=== PATIENT | female | born 1945 | race Caucasian/White ===

== ENCOUNTER 2024-04-01 06:39 | Inpatient (IN) | payer MEDICARE, BC ==
[2024-04-01] VITALS (19 sets, daily range): BP systolic 145–161; BP diastolic 69–85; PULSE 75–104; RESP 12–25; TEMP 97.8–98.9; O2SAT 93–100
[~2024-04-01] VITALS: Ht 160 cm; Wt 72.7 kg
[2024-04-01] MEDS: normal saline 1000ML IV soln IVB ONE (06:57)
[2024-04-01] MEDS: normal saline 1000ml 1,000 ML IV ONE (06:58)
[2024-04-01 07:18] LABS: BASOPHILS % (AUTO) 0.4 % (0-1); EOSINOPHILS % (AUTO) 0.2 % (0-6); HEMATOCRIT 36.3 % (35.0-45.0); LYMPHOCYTES # (AUTO) 1.3 X10'3 (1.1-4.8); LYMPHOCYTES % (AUTO) 14.1 % (21-51); MEAN CORPUSCULAR HEMOGLOBIN 32.8 PG (27.0-31.0); MEAN CORPUSCULAR HGB CONC 33.1 g/dL (33.0-36.5); MEAN PLATELET VOLUME 7.6 FL (7.4-10.4); MONOCYTES % (AUTO) 10.7 % (2-12); NEUTROPHILS # (AUTO) 7.1 X10'3 (1.8-7.7); NEUTROPHILS % (AUTO) 74.6 % (42-75); PLATELET COUNT 152 X10'3 (140-440); RED BLOOD COUNT 3.66 X10'6 (4.20-5.60); RED CELL DISTRIBUTION WIDTH 15.9 % (11.5-14.5); WHITE BLOOD COUNT 9.5 X10'3 (4.5-11.0)
[2024-04-01] MEDS: IOHEXOL 12MG/ML oral solution 500 ML BOTTLE PO ONE (07:21)
[2024-04-01 07:31] LABS: LIPASE 24 U/L (16-77); MAGNESIUM 2.3 MG/DL (1.5-2.4)
[2024-04-01 07:40] LABS: APTT 28 SECONDS (22-32); INR 1.1 INR; PROTHROMBIN TIME 11.4 SECONDS (9.0-12.0)
[2024-04-01 07:48] LABS: ETHANOL < 10 MG/DL (<10)
[2024-04-01] MEDS: morphine 2 MG/ML inj. syringe IV PRN (08:13)
[2024-04-01 09:46] LABS: ALANINE AMINOTRANSFERASE 31 U/L (12-78); ALBUMIN 3.2 G/DL (3.4-5.0); ALBUMIN/GLOBULIN RATIO 0.7 (1.1-1.5); ALKALINE PHOSPHATASE 54 IU/L (46-116); ANION GAP 11 (8-16); ASPARTATE AMINO TRANSFERASE 39 U/L (10-37); BILIRUBIN,TOTAL 0.7 MG/DL (0.1-1.0); BLOOD UREA NITROGEN 17 MG/DL (7-18); BUN/CREATININE RATIO 16.7 (10.0-20.0); CALCIUM 8.6 MG/DL (8.5-10.1); CHLORIDE 105 MMOL/L (99-107); CREATININE 1.02 MG/DL (0.40-0.90); GLUCOSE 127 MG/DL (70-104); POTASSIUM 3.7 MMOL/L (3.5-5.1); SODIUM 139 MMOL/L (135-145); TOTAL CARBON DIOXIDE 23.3 MMOL/L (24-32); TOTAL PROTEIN 7.6 G/DL (6.4-8.2); eCRCL 38 ML/MIN; eGFR 52 ML/MIN
[2024-04-01] MEDS ORDERED: iohexol 300mg/ml 100ml inj. ONE (09:55)
[2024-04-01] MEDS: metroNIDAZOLE-Flagyl 500mg/NS 100 ML IV STA (11:20)
[2024-04-01] MEDS ORDERED: acetaminophen 325mg tablet PO PRN (11:40)
[2024-04-01] MEDS ORDERED: magnesium Cl slow-release 64mg tablet PO PRN (11:40)
[2024-04-01] MEDS ORDERED: potassium Cl 40MEQ/1/2NS 520ml 520 ML IV PRN (11:40)
[2024-04-01] MEDS ORDERED: ondansetron/PF 4mg/2ml inj IV PRN ×2 (11:40→15:00)
[2024-04-01] MEDS ORDERED: magnesium sulf-water 2g/50mL 50 ML IV PRN (11:40)
[2024-04-01] MEDS ORDERED: potassium Cl 20 mEq SR tablet PO PRN ×2 (11:40)
[2024-04-01] MEDS ORDERED: morphine 2 MG/ML inj. syringe IV PRN ×2 (11:40→15:00)
[2024-04-01] MEDS ORDERED: magnesium sulf-water 4G/100mL 100 ML IV PRN (11:40)
[2024-04-01] MEDS: normal saline 1000ml 1,000 ML IV SCH (11:52)
[2024-04-01] MEDS: piperacillin/tazo 4.5gm/100ml 100 ML IV ONE (12:30)
[2024-04-01] MEDS ORDERED: BUPIVAcaine/PF 2.5mg/ml (0.25%) 10ml vial ONE (13:48)
[2024-04-01] MEDS: morphine 2 MG/ML inj. syringe IV ONE (14:38)
[2024-04-01] MEDS ORDERED: proCHLORperazine 10 MG/2 ml inj IV PRN (15:00)
[2024-04-01] MEDS ORDERED: meperidine/PF 25mg/ml syringe IV PRN ×2 (15:00)
[2024-04-01] MEDS ORDERED: PANT-47 PO (15:40)
[2024-04-01] MEDS ORDERED: PHEN37.58 PO (15:41)
[2024-04-01] MEDS ORDERED: ALEN70TA60 PO (15:43)
[2024-04-01] MEDS ORDERED: sevoflurane 250ml liquid IH ONE (16:56)
[2024-04-01] MEDS ORDERED: propofol inj 20 ML IV ONE (16:58)
[2024-04-01] MEDS ORDERED: fentaNYL/PF 50MCG/1 ML 2ML syringe ONE (16:58)
[2024-04-01] MEDS ORDERED: midazolam 1 mg/ML 2ml injection ONE (16:58)
[2024-04-01] MEDS ORDERED: rocuronium 10mg/ml inj IV ONE (16:59)
[2024-04-01] MEDS ORDERED: dexamethasone sod phosphate 4mg/ml inj. ONE (17:27)
[2024-04-01] MEDS ORDERED: neostigmine methylsulfate 1 MG/ML 10ml vial ONE (18:46)
[2024-04-01] MEDS ORDERED: glycopyrrolate 0.2mg/ml inj ONE (18:46)
[2024-04-01] MEDS: meperidine/PF 25mg/ml syringe IV PRN (19:01)
[2024-04-01] MEDS ORDERED: naloxone 0.4 mg/ml inj IV PRN (19:15)
[2024-04-01] MEDS: morphine 4 MG/ML inj SYRINge IV PRN (19:37)
[2024-04-01] MEDS: K and/or MAG REPLACEMENT MC SCH (20:00)
[2024-04-01] MEDS: docusate sod 100mg capsule PO SCH (20:38)
[2024-04-01] MEDS: ringers solution, lacted 1,000 ML IV SCH (20:39)
[2024-04-01] MEDS: heparin, porcine 5000 units/ml vial SQ SCH (20:39)
[2024-04-01] MEDS: HYDROmorphone inj. 0.5 MG/0.5 ML DISP.SYRIN IV PRN (23:13)
[2024-04-02] MEDS: piperacillin/tazo 4.5gm/100ml 100 ML IV SCH (00:13)
[2024-04-02 02:00] VITALS: BP 154/83; PULSE 103; RESP 14; TEMP 98.2; O2SAT 96
[2024-04-02 06:33] LABS: BASOPHILS % (AUTO) 0.1 % (0-1); EOSINOPHILS % (AUTO) 0 % (0-6); HEMATOCRIT 33.7 % (35.0-45.0); HEMOGLOBIN 11.3 g/dl (12.0-16.0); LYMPHOCYTES # (AUTO) 0.9 X10'3 (1.1-4.8); LYMPHOCYTES % (AUTO) 12.1 % (21-51); MEAN CORPUSCULAR HGB CONC 33.4 g/dL (33.0-36.5); MEAN CORPUSCULAR VOLUME 98.8 FL (78-98); MONOCYTES # (AUTO) 0.6 X10'3 (0-0.9); MONOCYTES % (AUTO) 7.8 % (2-12); NEUTROPHILS # (AUTO) 6.3 X10'3 (1.8-7.7); PLATELET COUNT 152 X10'3 (140-440); RED BLOOD COUNT 3.41 X10'6 (4.20-5.60); RED CELL DISTRIBUTION WIDTH 15.6 % (11.5-14.5); WHITE BLOOD COUNT 7.8 X10'3 (4.5-11.0)
[2024-04-02 06:47] LABS: ALBUMIN 2.4 G/DL (3.4-5.0); ANION GAP 12 (8-16); BLOOD UREA NITROGEN 14 MG/DL (7-18); BUN/CREATININE RATIO 15.6 (10.0-20.0); CALCIUM 7.7 MG/DL (8.5-10.1); CHLORIDE 105 MMOL/L (99-107); GLUCOSE 126 MG/DL (70-104); MAGNESIUM 1.9 MG/DL (1.5-2.4); POTASSIUM 4.1 MMOL/L (3.5-5.1); SODIUM 138 MMOL/L (135-145); TOTAL CARBON DIOXIDE 20.6 MMOL/L (24-32); eCRCL 43 ML/MIN; eGFR 61 ML/MIN
[2024-04-02 07:10] VITALS: BP 144/72; PULSE 104; RESP 13; TEMP 98; O2SAT 94
[2024-04-02] MEDS: pantoprazole 40mg Tablet.DR PO SCH (07:30)
[2024-04-02 08:00] VITALS: RESP 13; O2SAT 94
[2024-04-02] MEDS: morphine 2 MG/ML inj. syringe IV PRN (10:02)
[2024-04-02 10:05] VITALS: BP 145/73; PULSE 102; RESP 16; TEMP 99.8; O2SAT 95
[2024-04-02] MEDS ORDERED: HYDROcodone/acetaminophen 5mg/325mg tablet PO PRN (14:25)
[2024-04-02 18:00] VITALS: BP 153/90; PULSE 109; RESP 17; TEMP 98.4; O2SAT 93
[2024-04-02 22:00] VITALS: BP 150/78; PULSE 103; RESP 16; TEMP 98.7; O2SAT 94
[2024-04-03 06:00] VITALS: BP 157/75; PULSE 99; RESP 17; TEMP 97.8; O2SAT 91
[2024-04-03 06:26] LABS: BASOPHILS % (AUTO) 0.1 % (0-1); EOSINOPHILS % (AUTO) 0.4 % (0-6); HEMATOCRIT 33.6 % (35.0-45.0); HEMOGLOBIN 10.9 g/dl (12.0-16.0); LYMPHOCYTES # (AUTO) 1.1 X10'3 (1.1-4.8); LYMPHOCYTES % (AUTO) 14.1 % (21-51); MEAN CORPUSCULAR HGB CONC 32.6 g/dL (33.0-36.5); MEAN CORPUSCULAR VOLUME 98.4 FL (78-98); MEAN PLATELET VOLUME 7.7 FL (7.4-10.4); MONOCYTES # (AUTO) 0.4 X10'3 (0-0.9); MONOCYTES % (AUTO) 5.8 % (2-12); NEUTROPHILS # (AUTO) 6.2 X10'3 (1.8-7.7); NEUTROPHILS % (AUTO) 79.6 % (42-75); PLATELET COUNT 163 X10'3 (140-440); RED BLOOD COUNT 3.42 X10'6 (4.20-5.60); RED CELL DISTRIBUTION WIDTH 15.8 % (11.5-14.5); WHITE BLOOD COUNT 7.8 X10'3 (4.5-11.0)
[2024-04-03 06:54] LABS: ALBUMIN 2.1 G/DL (3.4-5.0); ANION GAP 8 (8-16); BLOOD UREA NITROGEN 14 MG/DL (7-18); BUN/CREATININE RATIO 12.4 (10.0-20.0); CALCIUM 7.8 MG/DL (8.5-10.1); CHLORIDE 105 MMOL/L (99-107); CREATININE 1.13 MG/DL (0.40-0.90); GLUCOSE 118 MG/DL (70-104); MAGNESIUM 2.4 MG/DL (1.5-2.4); POTASSIUM 3.7 MMOL/L (3.5-5.1); SODIUM 136 MMOL/L (135-145); TOTAL CARBON DIOXIDE 22.6 MMOL/L (24-32); eCRCL 34 ML/MIN; eGFR 47 ML/MIN
[2024-04-03] MEDS: HYDROcodone/acetaminophen 10/325mg tab PO PRN (07:44)
[2024-04-03 08:00] VITALS: RESP 17; O2SAT 91
[2024-04-03 10:00] VITALS: BP 153/70; PULSE 66; RESP 17; TEMP 98.1; O2SAT 92
[2024-04-03 18:00] VITALS: BP 154/77; PULSE 93; RESP 16; TEMP 99; O2SAT 96
[2024-04-03 20:00] VITALS: RESP 15; O2SAT 96
[2024-04-03 22:00] VITALS: BP 159/78; PULSE 87; RESP 17; TEMP 98.1; O2SAT 93
[2024-04-04] VITALS (7 sets, daily range): BP systolic 154–176; BP diastolic 72–84; PULSE 89–99; RESP 16–19; TEMP 98–98.4; O2SAT 91–99
[2024-04-04 06:14] LABS: BASOPHILS % (AUTO) 0.2 % (0-1); EOSINOPHILS # (AUTO) 0.1 X10'3 (0-0.9); HEMOGLOBIN 10.5 g/dl (12.0-16.0); LYMPHOCYTES # (AUTO) 1.3 X10'3 (1.1-4.8); LYMPHOCYTES % (AUTO) 14.5 % (21-51); MEAN CORPUSCULAR HEMOGLOBIN 32.2 PG (27.0-31.0); MEAN CORPUSCULAR VOLUME 97.7 FL (78-98); MEAN PLATELET VOLUME 7.3 FL (7.4-10.4); MONOCYTES # (AUTO) 0.5 X10'3 (0-0.9); MONOCYTES % (AUTO) 5.6 % (2-12); NEUTROPHILS # (AUTO) 6.8 X10'3 (1.8-7.7); NEUTROPHILS % (AUTO) 78.7 % (42-75); PLATELET COUNT 163 X10'3 (140-440); RED BLOOD COUNT 3.27 X10'6 (4.20-5.60); RED CELL DISTRIBUTION WIDTH 15.8 % (11.5-14.5); WHITE BLOOD COUNT 8.7 X10'3 (4.5-11.0)
[2024-04-04 06:24] LABS: ANION GAP 10 (8-16); BLOOD UREA NITROGEN 9 MG/DL (7-18); BUN/CREATININE RATIO 10.1 (10.0-20.0); CALCIUM 8.6 MG/DL (8.5-10.1); CHLORIDE 106 MMOL/L (99-107); CREATININE 0.89 MG/DL (0.40-0.90); GLUCOSE 111 MG/DL (70-104); MAGNESIUM 2.2 MG/DL (1.5-2.4); POTASSIUM 3.6 MMOL/L (3.5-5.1); SODIUM 138 MMOL/L (135-145); TOTAL CARBON DIOXIDE 21.8 MMOL/L (24-32); eCRCL 43 ML/MIN; eGFR 61 ML/MIN
[2024-04-04] MEDS: mag hydrox/Alum hydrox/simeth 30ml oral suspension PO PRN (12:33)
[2024-04-04] MEDS ORDERED: famotidine/PF IV inj 20 MG in normal saline 100ml IV soln 100 ML IV SCH (20:00)
[2024-04-04] MEDS: famotidine/PF 10 mg/ml inj IV SCH (21:30)
[2024-04-04] MEDS: hydrALAZINE 20mg/ml inj. IV ONE (23:35)
[2024-04-05] MEDS: HYDROcodone/acetaminophen 5mg/325mg tablet PO PRN (03:37)
[2024-04-05 03:41] VITALS: BP 169/79
[2024-04-05] MEDS: hydrALAZINE 20mg/ml inj. ONE (03:58)
[2024-04-05] MEDS: hydrALAZINE 20mg/ml inj. IV ONE (04:08)
[2024-04-05 06:00] VITALS: BP 167/75; PULSE 90; RESP 20; TEMP 97.7; O2SAT 93
[2024-04-05 06:02] LABS: BASOPHILS % (AUTO) 0.4 % (0-1); EOSINOPHILS # (AUTO) 0.1 X10'3 (0-0.9); HEMATOCRIT 30.2 % (35.0-45.0); HEMOGLOBIN 10.3 g/dl (12.0-16.0); LYMPHOCYTES # (AUTO) 1.2 X10'3 (1.1-4.8); LYMPHOCYTES % (AUTO) 11.3 % (21-51); MEAN CORPUSCULAR VOLUME 97.1 FL (78-98); MEAN PLATELET VOLUME 7.7 FL (7.4-10.4); MONOCYTES # (AUTO) 0.9 X10'3 (0-0.9); MONOCYTES % (AUTO) 8.2 % (2-12); NEUTROPHILS # (AUTO) 8.3 X10'3 (1.8-7.7); NEUTROPHILS % (AUTO) 79.1 % (42-75); PLATELET COUNT 194 X10'3 (140-440); RED BLOOD COUNT 3.11 X10'6 (4.20-5.60); RED CELL DISTRIBUTION WIDTH 15.8 % (11.5-14.5); WHITE BLOOD COUNT 10.5 X10'3 (4.5-11.0)
[2024-04-05 08:30] VITALS: RESP 16
[2024-04-05 08:51] LABS: ALBUMIN 1.7 G/DL (3.4-5.0); ANION GAP 10 (8-16); BLOOD UREA NITROGEN 7 MG/DL (7-18); BUN/CREATININE RATIO 10.1 (10.0-20.0); CALCIUM 8.5 MG/DL (8.5-10.1); CHLORIDE 104 MMOL/L (99-107); CREATININE 0.69 MG/DL (0.40-0.90); GLUCOSE 108 MG/DL (70-104); POTASSIUM 3.3 MMOL/L (3.5-5.1); SODIUM 137 MMOL/L (135-145); TOTAL CARBON DIOXIDE 23.2 MMOL/L (24-32); eCRCL 56 ML/MIN; eGFR 82 ML/MIN
[2024-04-05 10:00] VITALS: BP 167/85; PULSE 85; RESP 16; TEMP 98.1; O2SAT 96
[2024-04-05] MEDS ORDERED: magnesium Cl slow-release 64mg tablet PO PRN (12:30)
[2024-04-05] MEDS ORDERED: potassium Cl 20 mEq SR tablet PO PRN (12:30)
[2024-04-05] MEDS ORDERED: potassium Cl 40MEQ/1/2NS 520ml 520 ML IV PRN (12:30)
[2024-04-05] MEDS ORDERED: magnesium sulf-water 4G/100mL 100 ML IV PRN (12:30)
[2024-04-05] MEDS ORDERED: magnesium sulf-water 2g/50mL 50 ML IV PRN (12:30)
[2024-04-05] MEDS: potassium Cl 20 mEq SR tablet PO PRN (12:41)
[2024-04-05 17:54] VITALS: BP 181/87; PULSE 63; RESP 16; TEMP 98.1; O2SAT 96
[2024-04-05] MEDS: amLODIPine 5mg tablet PO ONE (18:03)
[2024-04-05 20:00] VITALS: RESP 16
[2024-04-05] MEDS: magnesium hydroxide 30ml (MOM) UD suspension PO SCH (21:24)
[2024-04-05] MEDS: K and/or MAG REPLACEMENT MC SCH (21:25)
[2024-04-06 02:55] VITALS: BP 167/77; PULSE 74; RESP 16; TEMP 97.7; O2SAT 100
[2024-04-06 04:58] LABS: BASOPHILS % (AUTO) 0.4 % (0-1); EOSINOPHILS # (AUTO) 0.2 X10'3 (0-0.9); EOSINOPHILS % (AUTO) 1.7 % (0-6); HEMATOCRIT 31.1 % (35.0-45.0); HEMOGLOBIN 10.5 g/dl (12.0-16.0); LYMPHOCYTES # (AUTO) 1.5 X10'3 (1.1-4.8); LYMPHOCYTES % (AUTO) 16.1 % (21-51); MEAN CORPUSCULAR HEMOGLOBIN 32.6 PG (27.0-31.0); MEAN CORPUSCULAR HGB CONC 33.7 g/dL (33.0-36.5); MEAN CORPUSCULAR VOLUME 96.6 FL (78-98); MEAN PLATELET VOLUME 7.2 FL (7.4-10.4); MONOCYTES # (AUTO) 1.2 X10'3 (0-0.9); MONOCYTES % (AUTO) 12.8 % (2-12); NEUTROPHILS # (AUTO) 6.5 X10'3 (1.8-7.7); PLATELET COUNT 215 X10'3 (140-440); RED BLOOD COUNT 3.22 X10'6 (4.20-5.60); RED CELL DISTRIBUTION WIDTH 15.7 % (11.5-14.5); WHITE BLOOD COUNT 9.5 X10'3 (4.5-11.0)
[2024-04-06 05:13] LABS: ALBUMIN 2.2 G/DL (3.4-5.0); ANION GAP 6 (8-16); BLOOD UREA NITROGEN 8 MG/DL (7-18); BUN/CREATININE RATIO 8.5 (10.0-20.0); CHLORIDE 104 MMOL/L (99-107); CREATININE 0.94 MG/DL (0.40-0.90); GLUCOSE 110 MG/DL (70-104); MAGNESIUM 1.9 MG/DL (1.5-2.4); POTASSIUM 4.1 MMOL/L (3.5-5.1); SODIUM 138 MMOL/L (135-145); TOTAL CARBON DIOXIDE 27.8 MMOL/L (24-32); eCRCL 41 ML/MIN; eGFR 58 ML/MIN
[2024-04-06 06:00] VITALS: BP_SYST 164; BP_SYST 167; BP_DIAS 77; BP_DIAS 81; PULSE 74; PULSE 83; RESP 16; TEMP 97.7; TEMP 97.9; O2SAT 100; O2SAT 98
[2024-04-06] MEDS ORDERED: METR-159 PO (07:41)
[2024-04-06] MEDS ORDERED: LEVO750T68 PO (07:41)
[2024-04-06 08:00] VITALS: RESP 16; O2SAT 98
[2024-04-06] MEDS ORDERED: pantoprazole 40mg Tablet.DR PO SCH (08:00)
[2024-04-06] MEDS: amLODIPine 5mg tablet PO SCH (08:29)
[2024-04-06] MEDS ORDERED: hydrALAZINE 20mg/ml inj. IV PRN (08:40)
[2024-04-06] MEDS ORDERED: NOR5T PO (08:42)
[2024-04-06] MEDS ORDERED: HYDR-3964 PO (08:42)
[2024-04-06] MEDS ORDERED: LOSA50TA64 PO (08:42)
[2024-04-06] MEDS ORDERED: FAMO20VI10 IV (08:42)
[2024-04-06] MEDS: magnesium citrate 296ml oral solution PO ONE (12:09)
[2024-04-06 12:39] VITALS: BP_SYST 146; PULSE 83
[2024-04-06] MEDS: losartan 50mg tablet PO SCH (12:39)
[2024-04-06] MEDS: ondansetron/PF 4mg/2ml inj IV PRN (13:46)
[2024-04-06 14:49] VITALS: RESP 18
[2024-04-06] MEDS ORDERED: lactose-reduced food (Ensure Enlive) - 237ml bottle PO SCH (18:00)
== END 2024-04-06 17:54 | disposition home or self-care (01) | DRG 335 ==
LOC: ER 06:40 → ED HOLD 11:41 → PACU 14:29 → ORTHO 4S 20:05 → SUR 3N 04-04 19:39
PROVIDERS: ADMIT Family Medicine; ATTEND Family Medicine
PROC: 8E0W4CZ Robotic Assisted Procedure of Trunk Region, Percutaneous Endoscopic Approach (ICD-10-PCS; 2024-04-01)
PROC: 0DNJ4ZZ Release Appendix, Percutaneous Endoscopic Approach (ICD-10-PCS; 2024-04-01)
PROC: BW211ZZ Computerized Tomography (CT Scan) of Abdomen and Pelvis using Low Osmolar Contrast (ICD-10-PCS; 2024-04-01)
PROC: 0DTJ0ZZ Resection of Appendix, Open Approach (ICD-10-PCS; principal; 2024-04-01 16:56)
PROC: 0D9670Z Drainage of Stomach with Drainage Device, Via Natural or Artificial Opening (ICD-10-PCS; 2024-04-02)
DX: K35.33 Acute appendicitis with perforation, localized peritonitis, and gangrene, with abscess (principal); N17.0 Acute kidney failure with tubular necrosis; K57.30 Diverticulosis of large intestine without perforation or abscess without bleeding; D75.89 Other specified diseases of blood and blood-forming organs; E87.6 Hypokalemia; Z87.11 Personal history of peptic ulcer disease; Z87.891 Personal history of nicotine dependence; Z53.31 Laparoscopic surgical procedure converted to open procedure; B96.20 Unspecified Escherichia coli [E. coli] as the cause of diseases classified elsewhere; B96.5 Pseudomonas (aeruginosa) (mallei) (pseudomallei) as the cause of diseases classified elsewhere; K66.0 Peritoneal adhesions (postprocedural) (postinfection)
CPT/HCPCS: 36415; 71045; 74177; 80048; 80053; 80320; 83605; 83690; 83735; 85025; 85610; 85730; 86885; 86900; 86901; 87040; 87070; 87077; 87081; 87185; 87186; 88304; 93005; 97161; 97530; 99285; A4215; A4314; A4618; A6260; A6402; A6449; G0378; J0360; J1100; J1171; J1644; J2175; J2250; J2270; J2405; J2543; J2704; J2710; J3010; J3490; J7030; Q9967